=== PATIENT | female | born 1965 | race Caucasian/White ===

== ENCOUNTER 2020-04-10 07:22 | Emergency (ER) | payer BC ==
--- NOTE | 2020-04-10 08:33 | ER Document Report ---
HPI - HPI Patient complains to provider of: Hives Time Seen by Provider: 04/10/20 08:32 Pain Level: Denies Notes: 54-year-old female with past medical history of fibromyalgia and menopause to the emergency department via EMS with complaints of progressively worsening hives since last night. She states that yesterday she noted she felt itchy all over. Last night as she was going to bed she noticed some small not raised hives to the back of her neck going into her scalp. She states that she then woke this morning and had hives everywhere. She took a Claritin prior to calling the medics. She states that the medics gave her a shot of Benadryl. She denies any new toiletries, diet, lotions, or detergents. She does admit that she started taking a exogenous hormone last week for menopausal symptoms. She states she has been on it before and never had a problem. She is had about 6 doses of it. She does not associate with her itching starting yesterday after she took the medicine. Denies any shortness of breath, nausea, vomiting, dizziness, chest pain, throat tightening, lip swelling, tongue swelling. She states she feels a little bit better after the Benadryl. She states when she was in her 20s she had several years where she would get hives but nothing was ever figured out about it. Was at that time that she had some allergy testing. She is not had any recent allergy testing. - ROS Systems Reviewed and Negative: Yes All other systems reviewed and negative - CONSTITUTIONAL Constitutional: DENIES: Fever, Chills - EENT EENT: DENIES: Sore Throat - NEURO Neurology: DENIES: Headache, Weakness - CARDIOVASCULAR Cardiovascular: DENIES: Chest pain - RESPIRATORY Respiratory: DENIES: Trouble Breathing, Coughing - GASTROINTESTINAL Gastrointestinal: DENIES: Abdominal Pain, Nausea, Patient vomiting, Diarrhea - URINARY Urinary: DENIES: Dysuria - DERM Skin Color: Normal Skin Problems: Rash - Hives all over the body Past Medical History - General Information source: Patient, Relative - Spouse - Social History Smoking Status: Never Smoker Chew tobacco use (# tins/day): No Frequency of alcohol use: None Drug Abuse: None Lives with: Spouse/Significant other Family History: Reviewed & Not Pertinent Pulmonary Medical History: Reports: Hx Asthma Psychiatric Medical History: Reports: Hx Depression Vertical Provider Document - CONSTITUTIONAL Agree With Documented VS: Yes Exam Limitations: No Limitations General Appearance: WD/WN, No Apparent Distress - HEENT HEENT: Atraumatic, Normocephalic, PERRLA Notes: No uvular swelling, tongue swelling, lip swelling. No drooling or voice change. Airway is grossly patent. No Tong's angina - NECK Neck: Normal Inspection, Supple - RESPIRATORY Respiratory: Breath Sounds Normal, No Respiratory Distress. negative: Rales, Rhonchi, Wheezing - CARDIOVASCULAR Cardiovascular: Regular Rate, Regular Rhythm - GI/ABDOMEN Gastrointestinal: Abdomen Soft, Abdomen Non-Tender - MUSCULOSKELETAL/EXTREMETIES Musculoskeletal/Extremeties: MAEW, FROM - NEURO Level of Consciousness: Awake, Alert, Appropriate Motor/Sensory: No Motor Deficit, No Sensory Deficit - DERM Integumentary: Warm, Rash - There are hives to the back, abdomen, arms, neck. Does not involve the face. There is no herald patch. There is no desquamation. There is no vesicles. Course - Re-evaluation Re-evalutation: 04/10/20 09:07 Patient with hives to the emergency department by EMS. She was given Benadryl by medics and she states she is feeling better. We will go ahead and give prednisone and Pepcid as well. Will monitor and if she does well will discharge home with steroids, Pepcid, Benadryl. We will send her for allergy testing. We discussed the possibility of the exogenous hormones giving her the hives and suggested that she stop them and talk to her physician who prescribed them. Also suggested repeat allergy testing. Patient agrees with the plan. 04/10/20 09:43 Impression: Hives, allergic reaction. Patient doing better after steroids as well as Pepcid and Benadryl. Will discharge home. She is encouraged to return if she worsens. Will send home with an EpiPen and have encouraged that if she has to use that she will need to return to the emergency department immediately. Follow-up with her primary care physician for allergy testing. Repeat vital signs which are very reassuring. Think that initial blood pressure was erroneous. Patient is doing very well. - Vital Signs Vital signs: Temp Pulse Resp BP Pulse Ox 97.6 F 65 16 93/71 L 98 04/10/20 07:38 04/10/20 07:38 04/10/20 07:38 04/10/20 07:38 04/10/20 07:38 Discharge - Discharge Clinical Impression: Hives Allergic reaction Qualifiers: Encounter type: initial encounter Qualified Code(s): T78.40XA - Allergy, unspecified, initial encounter Condition: Stable Disposition: HOME, SELF-CARE Instructions: Acute Allergic Reaction ([facility]) Additional Instructions: He been evaluated for hives here in the emergency department today. This is likely an allergic reaction. It could be related to the new hormones that he started a week ago. Please stop them and call your physician who wrote them for you. Take steroids as prescribed alongside Benadryl and Pepcid. Return if you have any worsening symptoms. If you have significantly worsening symptoms or shortness of breath please use EpiPen prescribed to you. If you use EpiPen you must come to the emergency department for further evaluation and management. Follow-up with your primary care for allergy testing. Prescriptions: Diphenhydramine HCl [Benadryl 25 mg Capsule] 25 mg PO Q8H #20 capsule Famotidine [Pepcid 20 mg Tablet] 20 mg PO BID #12 tablet Prednisone 10 mg PO ASDIR PRN #21 tablet PRN Reason: Referrals: SASHA IZAGUIRRE MD [Primary Care Provider] - Follow up in 3-5 days (for close outpatient follow up and allergy testing)
[2020-04-10] MEDS ORDERED: PREDNISONE 20 MG TABLET PO ONE (09:02)
[2020-04-10] MEDS ORDERED: FAMOTIDINE 20 MG TABLET PO ONE (09:02)
[2020-04-10 09:24] VITALS: BP 108/67
== END 2020-04-10 10:14 | disposition home or self-care (01) ==
LOC: ER 07:22
DX: T78.40XA Allergy, unspecified, initial encounter (principal); L50.9 Urticaria, unspecified; J45.909 Unspecified asthma, uncomplicated; X58.XXXA Exposure to other specified factors, initial encounter
CPT/HCPCS: 99283; J7512